=== PATIENT | female | born 1995 ===

== ENCOUNTER 2019-01-08 23:29 | Emergency (ER) | payer OTHER ==
[~2019-01-08] VITALS: Ht 154.9 cm; Wt 57.2 kg
[2019-01-09] MEDS ORDERED: MUPIROCIN22 GM TOP ×2 (03:18→03:19)
[2019-01-09] MEDS ORDERED: CEFUROXIME500 MG PO (03:19)
== END 2019-01-09 03:28 | disposition home or self-care (01) ==
LOC: ER 23:29
DX: N61.0 Mastitis without abscess (principal)

== ENCOUNTER 2019-02-09 00:17 | Emergency (ER) | payer OTHER ==
[~2019-02-09] VITALS: Ht 152.4 cm; Wt 55.8 kg
[~2019-02-09 00:17] MED LIST: CEFUROXIME500 MG PO; MUPIROCIN22 GM TOP
[2019-02-09] MEDS ORDERED: CEFUROXIME500 MG PO (02:43)
[2019-02-09] MEDS ORDERED: KETO10TA2 PO (02:44)
== END 2019-02-09 02:38 | disposition home or self-care (01) ==
LOC: ER 00:17
DX: I88.9 Nonspecific lymphadenitis, unspecified (principal); N39.0 Urinary tract infection, site not specified; Z33.1 Pregnant state, incidental

== ENCOUNTER 2019-09-29 14:31 | Inpatient (IN) | payer OTHER ==
[~2019-09-29] VITALS: Ht 154.9 cm; Wt 2.7 kg
[~2019-09-29 14:31] MED LIST changes: +KETO10TA2 PO; +PRENATAL 19 TA1 EAC1 PO
== END 2019-10-03 12:58 | disposition home or self-care (01) | DRG 785 ==
LOC: OB/GYN 14:31 → O/R 09-30 08:10 → OB/GYN 09-30 08:10
PROVIDERS: ADMIT Obstetrics & Gynecology
PROC: 0UL70ZZ Occlusion of Bilateral Fallopian Tubes, Open Approach (ICD-10-PCS; 2019-09-30)
PROC: 4A1HXCZ Monitoring of Products of Conception, Cardiac Rate, External Approach (ICD-10-PCS; 2019-09-30)
PROC: 10D00Z1 Extraction of Products of Conception, Low, Open Approach (ICD-10-PCS; principal; 2019-09-30 12:00)
DX: O82 Encounter for cesarean delivery without indication (principal); Z3A.39 39 weeks gestation of pregnancy; Z37.0 Single live birth; Z30.2 Encounter for sterilization